=== PATIENT | male | born 1980 | race Caucasian/White ===

== ENCOUNTER 2018-08-29 21:53 | Emergency (ER) | payer BC ==
[~2018-08-29 21:53] MED LIST: ISOVUE-370 76%-LOCM 1 ML ONE
[2018-08-29 22:17] LABS: Bilirubin Negative (Negative); Blood, Urine Negative (Negative); Clarity CLEAR (Clear); Glucose, Urine (Dipstick) Negative (Negative); Leukocyte Small (Negative); Nitrite Negative (Negative); Protein, Urine (Dipstick) Negative (Neg-Trace); Specific Gravity, Urine 1.021 (1.002-1.036); pH, Urine 5.5 (5.0-9.0)
[2018-08-29 22:18] LABS: Bacteria/HPF None Seen HPF (None Seen); Hyaline Casts/LPF 4-6 HYALINE CAST LPF (0-3 Hyaline); Pathc Cast-AUWi Flag 0.43 (0-2.49); RBC/HPF 0-3 HPF (0-3); Squamous Epithelial 0-3 HPF (0-3)
[2018-08-29 22:32] LABS: #Basophils 0.1 thou/uL (0.0-0.2); #Eosinphils 0.9 thou/uL (0.0-0.7); #Lymphocytes 3.3 thou/uL (1.20-3.40); #Monocytes 0.6 thou/uL (0.11-0.59); #Neutrophils 3.8 thou/uL (1.40-6.50); %Basophils 0.6 % (0.0-1.0); %Eosinophils 10.7 % (0.0-10.0); %Lymphocytes 37.9 % (21.0-51.0); %Monocytes 6.8 % (0.0-10.0); %Neutrophils 43.9 % (42.0-75.0); Hemoglobin 14.6 g/dL (14.0-18.0); Mean Corpuscular HGB CONC 31.9 g/dL (32.0-36.0); Mean Corpuscular Hemoglobin 26.4 pg (27.0-31.0); Mean Corpuscular Volume 82.7 fL (78.0-98.0); Mean Platelet Volume 7.2 fL (7.4-10.4); Platelet Count 272 thou/uL (130-400); RBC Distribution Width 12.7 % (11.5-14.5); Red Blood Cell (RBC) Count 5.54 mill/uL (4.70-6.10); White Blood Cell (WBC) Count 8.7 thou/uL (4.8-10.8)
[2018-08-29 23:00] LABS: ALT (SGPT) 27 U/L (8-55); AST (SGOT) 21 U/L (5-34); Albumin 4.2 g/dL (3.5-5.0); Anion Gap 12 mmol/L (10-20); BUN (Urea Nitrogen) 10 mg/dL (8.9-20.6); Bilirubin, Total 0.2 mg/dL (0.2-1.2); Calc. Creatinine Clearance 0 mL/min (70-130); Calcium 9.3 mg/dL (7.8-10.44); Carbon Dioxide 24 mmol/L (22-29); Chloride 107 mmol/L (98-107); Estimated GFR-MDRD 77; Globulin 3.8 g/dL (2.4-3.5); Glucose 94 mg/dL (70-105); Potassium 3.8 mmol/L (3.5-5.1); Sodium 139 mmol/L (136-145)
[2018-08-29 23:07] LABS: Alkaline Phosphatase 85 U/L (40-150)
[2018-08-29] MEDS ORDERED: Metoclopramide HCl 10 MG/2 ML VIAL ONE (23:09)
[2018-08-29] MEDS ORDERED: Pantoprazole 40 MG VIAL ONE (23:09)
[2018-08-29] MEDS ORDERED: diphenhydrAMINE 50 MG/ML VIAL ONE (23:10)
--- NOTE | 2018-08-29 23:54 | CT ---
CT ABDOMEN AND PELVIS WITH CONTRAST: 08/29/18 Multiple axial tomograms obtained through the abdomen and pelvis with IV enhancement. INDICATION: Abdominal pain. Comparison made to CT abdomen and pelvis 03/05/17. FINDINGS: Lung bases clear. Liver, spleen, and pancreas unremarkable. Adrenal glands unremarkable. There is an irregularly shaped calcification in the lower pole collecting structures of the left kidn ey measuring up to 1 cm, unchanged from prior exam. A 3 to 4 mm calculus upper pole collecting struct ure left kidney also again noted. There is no evidence of ureteral calculus. There is no evidence of hydronephrosis. Small bowel loops appear normal. Appendix appears normal. Stool throughout the colon. No adenopathy. Aorta is normal caliber. No evidence of free fluid, abscess, or inflammatory process. IMPRESSION: 1. There are nonobstructing calculi in the upper collecting structures of the left kidney which appears stable from prior exam. 2. No evidence of acute process. POS: JAELYN
== END 2018-08-30 00:40 | disposition home or self-care (01) ==
LOC: ERS 21:53
DX: R10.13 Epigastric pain (principal); N39.0 Urinary tract infection, site not specified
CPT/HCPCS: 36415; 74177; 80053; 81003; 81015; 85025; 96365; 96375; C9113; J1200; J2765